=== PATIENT | male | born 1950 | race Caucasian/White ===

== ENCOUNTER 2019-05-23 07:45 | Outpatient (CLI) | payer MEDICARE, OTHER ==
[2019-05-23] MEDS ORDERED: No meds per pt. (08:41)
== END 2019-05-23 23:59 | disposition home or self-care (01) ==
LOC: STAR 07:45
PROVIDERS: ATTEND Surgery
DX: Z01.818 Encounter for other preprocedural examination (principal); K40.90 Unilateral inguinal hernia, without obstruction or gangrene, not specified as recurrent
CPT/HCPCS: 93005

== ENCOUNTER 2019-06-27 08:54 | Day surgery (SDC) | payer MEDICARE ==
[~2019-06-27] VITALS: Ht 188 cm; Wt 102.9 kg
[~2019-06-27 08:54] MED LIST: No meds per pt.
[2019-06-27] MEDS ORDERED: PLEASE ENTER HEIGHT AND WEIGHT MC SCH (09:30)
[2019-06-27] MEDS ORDERED: GABAPENTIN 300 MG CAPSULE PO ONE (09:30)
[2019-06-27] MEDS ORDERED: ACETAMINOPHEN 500 MG TABLET PO ONE (09:30)
[2019-06-27 09:38] VITALS: BP 131/79
[2019-06-27 09:41] VITALS: BP 131/79
[2019-06-27] MEDS ORDERED: LACTATED RINGERS 1,000 ML IV SCH (09:52)
[2019-06-27] MEDS ORDERED: BUPIVACAINE/PF 0.5% ONE (10:20)
[2019-06-27] MEDS ORDERED: EPINEPHRINE 1 MG/ML, 1ML ONE (10:20)
[2019-06-27] MEDS ORDERED: MIDAZOLAM 1 MG/ML, 2ML ONE (10:29)
[2019-06-27] MEDS ORDERED: FENTANYL PF 250 MCG/5ML ONE (10:29)
[2019-06-27] MEDS ORDERED: hydrALAzine 20 MG/ML, 1ML IV PRN (10:30)
[2019-06-27] MEDS ORDERED: HYDROmorphone 2 MG/ML, 1ML IVPush PRN (10:30)
[2019-06-27] MEDS ORDERED: LABETALOL 5MG/ML, 20ML IV PRN (10:30)
[2019-06-27] MEDS ORDERED: OXYcodone 5 MG/5 ML ORAL.SOL UDC PO PRN (10:30)
[2019-06-27] MEDS ORDERED: HALOPERIDOL 5 MG/ML IV PRN (10:30)
[2019-06-27] MEDS ORDERED: PROMETHAZINE 25 MG/ML, 1ML IV PRN (10:30)
[2019-06-27] MEDS ORDERED: MEPERIDINE/PF 25MG/ML,1ML IVPush PRN (10:30)
[2019-06-27] MEDS ORDERED: ROCURONIUM 10MG/ML,5ML ONE (12:26)
[2019-06-27] MEDS ORDERED: PROPOFOL 10 MG/ML, 20ML ONE (12:26)
[2019-06-27] MEDS ORDERED: ONDANSETRON 2MG/ML, 2ML ONE (12:26)
[2019-06-27] MEDS ORDERED: GLYCOPYRROLATE 0.2MG/1ML, 5ML ONE (12:26)
[2019-06-27] MEDS ORDERED: NEOSTIGMINE 1 MG/ML, 10ML ONE (12:26)
[2019-06-27] MEDS ORDERED: DEXAMETHASONE 4 MG/ML, 1ML ONE (12:26)
[2019-06-27] MEDS ORDERED: SUCCINYLCHOLINE 20 MG/ML, 10ML ONE (12:26)
[2019-06-27] MEDS ORDERED: CEFAZOLIN 1,000 MG ONE (12:26)
[2019-06-27] MEDS ORDERED: FENTANYL PF 100 MCG/2ML ONE (12:49)
[2019-06-27] MEDS: FENTANYL PF 100 MCG/2ML IV PRN ×3 (12:50→13:07)
[2019-06-27] MEDS ORDERED: OXYcodone 5 MG/5 ML ORAL.SOL UDC ONE (13:09)
== END 2019-06-27 14:45 | disposition home or self-care (01) ==
LOC: OUT 08:54
PROVIDERS: ATTEND Surgery
DX: K40.20 Bilateral inguinal hernia, without obstruction or gangrene, not specified as recurrent (principal)
CPT/HCPCS: 49650; C1781; J0171; J0330; J0690; J1100; J2250; J2405; J2704; J2710; J3010; J7120